=== PATIENT | male | born 1950 | race Caucasian/White ===

== ENCOUNTER → 2025-04-07 08:36 | Outpatient (REF) | payer MEDICARE, OTHER, SELFPAY ==
[2025-04-07 12:17] LABS: % Basophils 0.6 % (0-2); % Eosinophils 3.9 % (0-6); % Immature Granulocytes 0.1 % (0-0.5); % Lymphocytes 30.2 % (20.5-51.1); % Monocytes 11.1 % (1.7-9.3); % Neutrophils 54.1 % (42.2-75.2); Absolute Eosinophils 0.3 10^3/uL (0-0.7); Absolute Lymphocytes 2.2 10^3/uL (1.2-3.4); Absolute Monocytes 0.8 10^3/uL (0.1-0.6); Absolute Neutrophils 3.9 10^3/uL (1.4-6.5); Hematocrit 39.6 % (39.0-52.0); Hemoglobin 13.3 g/dL (13.0-18.0); Mean Corp Hgb Conc. 33.6 g/dL (33.0-37.0); Mean Corpuscular Hgb 31.4 pg (27.0-31.0); Mean Corpuscular Volume 93.6 fL (80.0-94.0); Mean Platelet Volume 9.9 fL (7.4-10.4); Nucleated Red Blood Cells % 0 % (-); Platelet Count 205 10^3/uL (130-400); Red Blood Cell Count 4.23 10^6/uL (4.70-6.10); Red Cell Dist. Width 13.9 % (11.5-14.5); White Blood Cell Count 7.1 10^3/uL (4.8-10.8)
[2025-04-07 12:26] LABS: Vitamin D, 25-OH*** 44.1 ng/mL (30-80)
[2025-04-07 12:33] LABS: ALT (SGPT) 26 U/L (0-50); AST (SGOT) 32 U/L (17-59); Albumin 4.2 g/dl (3.5-5.0); Alkaline Phosphatase 80 U/L (38-126); Blood Urea Nitrogen 26 mg/dl (9-20); Calcium 9.2 mg/dl (8.4-10.2); Glucose 118 mg/dl (70-99); HDL Cholesterol 34 mg/dl; LDL Cholesterol, Calculated 52 mg/dl; Total Bilirubin 0.6 mg/dl (0.2-1.3); Total Cholesterol 126 mg/dl (50-199); Total Protein 6.7 g/dl (6.3-8.2); Triglyceride 201 mg/dl (10-149); Very Low Density Lipoprotein 40 mg/dl (0-30); eGFR 48.85
[2025-04-07 12:39] LABS: PSA, Total - Screen 2.65 ng/ml (0.0-4.0)
[2025-04-07 12:44] LABS: Carbon Dioxide 20 mmol/L (22-30); Chloride 111 mmol/L (98-107); Potassium 4.6 mmol/L (3.5-5.1); Sodium 143 mmol/L (135-145)
[2025-04-07 12:59] LABS: Vitamin B12 377 pg/ml (239-931)
[2025-04-07 15:05] LABS: Glycohemoglobin (HgbA1c) 5.6 % (4.0-5.6)
[2025-04-07 16:46] LABS: Urine Albumin 3+ (Neg - Trace); Urine Bilirubin Negative (Negative); Urine Character Cloudy (Clear); Urine Color Yellow; Urine Glucose Negative (Negative); Urine Ketone Negative (Negative); Urine Leukocyte 3+ (Negative); Urine Nitrite Negative (Negative); Urine Occult Blood 3+ (Negative); Urine Specific Gravity 1.015 (<1.030); Urine Urobilinogen Negative (Neg - 1+)
[2025-04-07 16:55] LABS: Urine Squamous Cell 0-2 /LPF (Few)
[2025-04-07 16:56] LABS: Urine Bacteria Many (Negative); Urine White Cell 80-90 /HPF (0-5)
== END ==
LOC: HWLAB 08:36
PROVIDERS: ATTENDING PHYSICIAN Emergency Medicine
DX: Z00.00 Encounter for general adult medical examination without abnormal findings (principal); I10 Essential (primary) hypertension; N40.1 Benign prostatic hyperplasia with lower urinary tract symptoms; I25.10 Atherosclerotic heart disease of native coronary artery without angina pectoris; R73.03 Prediabetes; N18.31 Chronic kidney disease, stage 3a; E53.8 Deficiency of other specified B group vitamins; E55.9 Vitamin D deficiency, unspecified; Z12.5 Encounter for screening for malignant neoplasm of prostate
CPT/HCPCS: 36415; 80053; 80061; 81003; 81015; 82306; 82607; 83036; 85025; G0103

== ENCOUNTER → 2025-04-28 11:41 | Outpatient (REF) | payer MEDICARE, OTHER, SELFPAY ==
[2025-04-28 16:56] LABS: Urine Albumin 3+ (Neg - Trace); Urine Bilirubin Negative (Negative); Urine Character Cloudy (Clear); Urine Color Yellow; Urine Glucose Negative (Negative); Urine Ketone Negative (Negative); Urine Leukocyte 3+ (Negative); Urine Nitrite Negative (Negative); Urine Occult Blood 3+ (Negative); Urine Urobilinogen Negative (Neg - 1+)
[2025-04-28 17:05] LABS: Urine Squamous Cell 0-2 /LPF (Few)
[2025-04-28 17:06] LABS: Urine Bacteria Many (Negative); Urine Red Blood Cell 0-2 /HPF (0-2); Urine White Cell >100 /HPF (0-5)
== END ==
LOC: CLAB 11:41
PROVIDERS: ATTENDING PHYSICIAN Specialist
DX: N39.0 Urinary tract infection, site not specified (principal)
CPT/HCPCS: 81003; 81015; 87077; 87086; 87186

== ENCOUNTER → 2025-05-14 08:28 | Outpatient (REF) | payer MEDICARE, OTHER, SELFPAY ==
[2025-05-14 17:44] LABS: Urine Albumin 3+ (Neg - Trace); Urine Bilirubin Negative (Negative); Urine Character Cloudy (Clear); Urine Color Yellow; Urine Glucose Negative (Negative); Urine Ketone Negative (Negative); Urine Leukocyte 3+ (Negative); Urine Nitrite Negative (Negative); Urine Occult Blood 4+ (Negative); Urine Urobilinogen Negative (Neg - 1+)
[2025-05-14 18:07] LABS: Urine Bacteria Many (Negative); Urine Red Blood Cell 0-2 /HPF (0-2); Urine Squamous Cell 0-2 /LPF (Few); Urine White Cell 70-80 /HPF (0-5)
== END ==
LOC: CLAB 08:28
PROVIDERS: ATTENDING PHYSICIAN Specialist
DX: N39.0 Urinary tract infection, site not specified (principal)
CPT/HCPCS: 81003; 81015; 87077; 87086; 87186

== ENCOUNTER → 2025-06-03 10:48 | Outpatient (REF) | payer MEDICARE, OTHER, SELFPAY ==
[2025-06-03 11:36] LABS: Urine Character Cloudy (Clear)
[2025-06-03 11:51] LABS: Urine Red Blood Cell 26-30 /HPF (0-2); Urine Squamous Cell 0-2 /LPF (Few); Urine White Cell 70-80 /HPF (0-5)
== END ==
LOC: REG 10:48
PROVIDERS: ATTENDING PHYSICIAN Specialist; FAMILY PHYSICIAN Emergency Medicine
DX: R30.0 Dysuria (principal)
CPT/HCPCS: 81003; 81015; 87077; 87086; 87186

== ENCOUNTER 2025-09-03 12:49 | Inpatient (IN) | payer MEDICARE, OTHER, SELFPAY ==
[2025-09-03] VITALS (13 sets, daily range): BP systolic 122–150; BP diastolic 72–93; BMI 28.1; BMI 27.6
--- NOTE | 2025-09-03 08:30 | ED.GENMED ---
History of Present Illness
General
Chief Complaint: Abdominal Pain
Source: patient
Exam Limitations: none
Time Seen by Provider: 09/03/25 07:42
Nursing documentation reviewed up to this point in time: agreed with
History of Present Illness
History of Present Illness:
The patient is a 75-year-old man with a past medical history of Crohn disease and a colostomy who reports abdominal pain that started yesterday as well as decreased output from his colostomy bag. Patient reports he vomited 1 time this morning at 6
AM and now feels better but still has some discomfort. Patient describes it now as dull and constant. He denies fever. He reports that his Crohn's disease is generally well-controlled.
Past History
Past History
ED Past Medical History: HTN and Other (Crohn's disease)
ED Past Surgical History: Orthopedic and Other (Bowel resection and surgery)
Social History
Tobacco: Non-smoker
Alcohol: Other
Drug: None
Personal:
Living: with family
Employment: Other
Family History
Family History: Other
Review of Systems
Review of Systems
Allergies reviewed?: Yes
All Other Systems: ROS reviewed and negative except as documented in HPI and ROS
Constitutional: Reports no symptoms
EENT: Reports no symptoms
Respiratory: Reports no symptoms
Cardiac: Reports no symptoms
ABD/GI: Reports abdominal pain, nausea and vomiting
: Reports no symptoms
Musculoskeletal: Reports no symptoms
Skin: Reports no symptoms
Neurological: Reports no symptoms
Endocrine: Reports no symptoms
Hematologic/Lymphatic: Reports no symptoms
Psychiatric: Reports no symptoms
Phy Exam
Physical Exam
Physical Exam:
Physical Exam
General: no apparent distress, not acutely ill
Neck: supple. no meningeal signs. normal psoterior pharynx
Heart: s1/s2 regular rate and rhythm, no murmur. equal radial pulses.
Lungs: no acute respiratory distress. clear bilaterally
Abdomen: Mildly distended. Decreased bowel sounds. Small output of brown-green stool in colostomy bag. Mild mid abdominal tenderness without rebound or guarding.
Neuro: alert and oriented. no focal neurological deficits
Skin: no rash
Psychiatric: well kept. interactive and cooperative
Extremities: no edema. no calf tenderness. negative homans. good distal pulses
Course
Orders/Labs/Results
Orders:
Orders
09/03/25 08:03
CMP [Comprehensive Metabolic Panel] Urgent
Complete Blood Count/With Diff Urgent
09/03/25 08:52
CT Abd/pelvis W Iv Cont Urgent
Comment:
Reason For Exam: decreased output from colostomy bag, ab pain
09/03/25 08:53
Acetaminophen [Tylenol] 1,000 mg PO NOW STA
09/03/25 08:59
Ketorolac [Toradol] 15 mg IV NOW STA
Abnormal Lab Results
09/03/25
08:03
WBC 10.9 H 10^3/uL
(4.8-10.8)
MCH 31.7 H pg
(27.0-31.0)
Absolute Neuts (auto) 9.2 H 10^3/uL
(1.4-6.5)
Absolute Lymphs (auto) 1.1 L 10^3/uL
(1.2-3.4)
Neutrophils % 83.8 H %
(42.2-75.2)
Lymphocytes % 9.9 L %
(20.5-51.1)
Chloride 111 H mmol/L
(98-107)
Glucose 145 H mg/dl
(70-99)
Total Bilirubin 1.7 H mg/dl
(0.2-1.3)
09/03/25 08:03
09/03/25 08:03
Vital Signs
Initial and Last Documented VS:
Initial Vital Signs
Temp Pulse Resp BP Pulse Ox
98.3 F 78 16 150/93 97
09/03/25 06:58 09/03/25 06:58 09/03/25 06:58 09/03/25 06:58 09/03/25 06:58
Last Documented Vital Signs
Temp Pulse Resp BP Pulse Ox
98.3 F 78 16 136/87 93
09/03/25 06:58 09/03/25 06:58 09/03/25 06:58 09/03/25 09:31 09/03/25 10:00
MDM/Problems Addressed
Differential Diagnosis Includes:
Acute on chronic flare of Crohn's disease, acute partial bowel obstruction
MDM/Problems Addressed:
Patient presents with acute abdominal pain and vomiting
Chronic conditions affecting care:
Crohn's disease
Chronic conditions affecting care: Previous abdomnial surgery
Acute Exacerbation and/or Progression of Chronic Illness:
Patient may have acute flare of chronic Crohn's disease.
*Radiology
Radiology exam reviewed: radiology read reviewed
*Pulse Oximetry
SaO2: 92
Oxygen Mode of Delivery: Room air
Patient hypoxic: no
*Critical Care Note
Total Time (30-74mins, 75-104mins- exclusive of procedures): Not Applicable
Data Reviewed
Review of Other/Old Records Reveals: Discharge Summary (Discharge summary reviewed from hospitalist from November 2024 when patient was admitted for a likely viral gastroenteritis)
Source: patient and spouse
ED Attending Note
-
Portions of this chart may have been created with voice recognition software.� Occasional wrong word or��sound alike� substitutions may have occurred due to the inherent limitations of voice recognition software.
Discharge Plan
Departure
Patient Disposition: Admit
Date of Disposition: 09/03/25
Time of Disposition: 10:11
Admit to: Med/Surg
Presentation/result/management discussed w/ accepting MD/DO: Hospitalist
Patient with high blood pressure during this ER visit?: Yes
Condition: Good
Covid-19: Not Applicable
Discharge Problem:
Small bowel obstruction
Prescriptions:
No Action
metoprolol succinate [Toprol XL] 50 mg Tablet Extended Release 24 Hr
50 mg PO DAILY
Stelara 90 mg/mL Syringe
90 mg SC Q6W
mirabegron [Myrbetriq] 50 mg Tablet Extended Release 24 Hr
50 mg PO DAILY
loperamide 2 mg Tablet
2 mg PO BID
cyanocobalamin (vitamin B-12) 1,000 mcg Tablet
1,000 mcg PO DAILY
therapeutic multivitamin Tablet
1 tab PO DAILY
eplerenone 50 mg Tablet
50 mg PO QPM
tadalafil [Cialis] 5 mg Tablet
5 mg PO QPM
solifenacin [Vesicare] 10 mg Tablet
10 mg PO QPM
PreserVision AREDS 2,148 mcg-113 mg-45 mg-17.4mg Tablet
1 tab PO BID
omeprazole 40 mg Capsule,Delayed Release(Dr/Ec)
40 mg PO DAILY
cranberry 450 mg Tablet
450 mg PO DAILY
amlodipine 2.5 mg Tablet
2.5 mg PO DAILY Qty: 30 0RF
famotidine [Pepcid] 20 mg Tablet
20 mg PO DAILY Qty: 0 0RF
Referrals:
Queenie Cam MD [Family Provider, Internal Medicine]
Interventions
Interventions:
*Risk Screen - Suicide Last Done: 09/03/25 06:58
*General Assessment Last Done: 09/03/25 07:49
*Neglect/Abuse Screening Last Done: 09/03/25 06:58
*ED- Fall Risk Assessment Last Done: 09/03/25 07:49
*ED COVID-19 Vaccine History Last Done: 09/03/25 07:49
*ED Influenza Vaccine History Last Done: 09/03/25 07:49
MQ-Odnkia-Ugqtojwlzq Assessment Last Done: 09/03/25 07:49
Discharge Date and Time
Print Language: NAMIBIAN
[2025-09-03 08:39] LABS: Hematocrit 44.2 % (39.0-52.0); Hemoglobin 14.9 g/dL (13.0-18.0); Mean Corp Hgb Conc. 33.7 g/dL (33.0-37.0); Mean Corpuscular Volume 94.0 fL (80.0-94.0); Nucleated Red Blood Cells % 0 % (-); Platelet Count 224 10^3/uL (130-400); Red Cell Dist. Width 13.1 % (11.5-14.5)
[2025-09-03 08:54] LABS: ALT (SGPT) 22 U/L (0-50); AST (SGOT) 23 U/L (17-59); Albumin 4.4 g/dl (3.5-5.0); Alkaline Phosphatase 69 U/L (38-126); Blood Urea Nitrogen 17 mg/dl (9-20); Calcium 9.5 mg/dl (8.4-10.2); Carbon Dioxide 25 mmol/L (22-30); Chloride 111 mmol/L (98-107); Estimated Creatinine Clearance 61 ml/min; Glucose 145 mg/dl (70-99); Potassium 4.0 mmol/L (3.5-5.1); Sodium 144 mmol/L (135-145); Total Protein 7.1 g/dl (6.3-8.2); eGFR > 60.00
[2025-09-03] MEDS: TORADOL 15 MG IV (09:32)
--- NOTE | 2025-09-03 11:44 | HPS.HSE ---
Addendum entered and electronically signed by Andi Green MD 09/03/25 13:59:
I personally performed a history and physical exam of the patient and discussed management with the resident. I reviewed the resident's note and agree with the documented findings and plan of care HPI/CC.
75-year-old male with history of Crohn's disease with takedown of fistula and colostomy, hypertension, CKD, BPH, CHAD on CPAP, pancreatic cyst, self caths at home came to the hospital with nausea vomiting abdominal pain. CT scan consistent with
distal SBO. Consult surgery. Surgery also requested GI evaluation. GI consulted. Administer NG tube if persistent nausea and vomiting. NPO. Gentle hydration. pain control. No urgency which he gets when he gets UTI. can monitor for now. Sees
urology outpatient. Discussed with Spouse at bedside as well.
General: Comfortable and Conversant
HEENT: Moist mucous membranes and Atraumatic
Respiratory: Clear; No Wheezes, Rales, Rhonchi
Cardiac: S1/S2 and Regular Rhythm
GI: Soft, Non Tender, Non Distended, Normal Bowel Sounds and Other (Ostomy clean, dressing intact)
Genito-urinary: Deferred by me
Musculoskeletal: No Edema
Neuro: AO x 3 and No Motor Deficits
Psych: Calm
I spent a total of 77 minutes with the patient or on the floor. More than 50% of this time involved counseling and coordination of care.
Original Note:
Family Physician
-
Family Physician: Queenie Cam MD
Chief Complaint
-
Abdominal pain
History of Present Illness
75-year-old male with past medical history significant for hypertension, Crohn's disease with takedown of fistula and colostomy, CKD stage IIIa, BPH, CHAD on CPAP, pancreatic cyst, presents to the hospital for evaluation of acute onset abdominal
pain. His abdominal pain started yesterday after 11 AM. And he started noticing decreased output from his colostomy bag. His most recent normal colostomy output was on 09/01 at 4 PM. patient reports single episode of nausea and emesis in the a.m.
today, and continues to have nausea. He states that he currently has abdominal discomfort, dull and constant which resolved upon coming to the ER and receiving pain medication. He denied having any tarry colored bowel movements or fresh blood in
the bowel.
He reports history of BPH with urinary retention and LUTS, and he straight caths 3 times a day, his urine output is typically about 800 to 1000 mL, over the last 2 days his urine output decreased.
He denies having fevers, chills, dysuria, hesitancy, dark urine, hematuria, chest pain, shortness of breath, and orthopnea or PND. He had no syncopal events.
Medical History
Past Medical History
Past Medical History: Reports Other (hypertension, Crohn's disease with takedown of fistula and colostomy, CKD stage IIIa, BPH, CHAD on CPAP, pancreatic cyst)
Past Surgical History: Reports Other (Total Colectomy, Multiple Ostomy Revisions, T&A, MOHS surgeries, Left TKA)
Social History
Tobacco: Former Smoker ([id number] smoking history, quit 12 years ago.)
Alcohol: Occasional
Drug: None
Personal:
Living: With Family
Employment: Retired
Family History
Family History: Not pertinent
Allergies / Home Medications
Allergies reflects when Allergies were last updated in [facility].
Home Medications with original date entered in [facility]
Allergy/Medication List:
Allergies
Allergy/AdvReac Type Severity Reaction Status Date / Time
mesalamine (From Pentasa) Allergy Rash Unverified 03/26/25 15:09
olmesartan (From Benicar) Allergy Rash Unverified 03/26/25 15:09
Penicillins Allergy Rash Unverified 03/26/25 15:09
Sulfa (Sulfonamide Allergy Rash Unverified 03/26/25 15:09
Antibiotics)
Home Medications
loperamide 2 mg tablet 2 mg PO BID diarrhea 12/25/23
metoprolol succinate 50 mg tablet,extended release 24 hr (Toprol XL) 50 mg PO HS Heart Disease/Condition 12/25/23
tadalafil 5 mg tablet (Cialis) 5 mg PO QPM bph 12/25/23
therapeutic multivitamin 1 tab PO HS Supplement 12/25/23
vitamins A,C,D-jhbq-nlhdps 2,148 mcg-113 mg-45 mg-17.4 mg tablet (PreserVision AREDS) 1 tab PO BID Supplement 12/25/23
cranberry fruit 450 mg tablet (cranberry) 450 mg PO HS Supplement 12/01/24
alfuzosin 10 mg tablet,extended release 24 hr 10 mg PO HS BPH 09/03/25
amlodipine 5 mg tablet 5 mg PO HS Blood Pressure 09/03/25
cyanocobalamin (vitamin B-12) 1,000 mcg/mL injection solution 1,000 mcg IM MONTHLY vitamin supplemen 09/03/25
doxycycline hyclate 100 mg capsule 100 mg PO BID acute cough 09/03/25
famotidine 20 mg tablet (Pepcid) 20 mg PO BID Gastrointestinal Issue 09/03/25
finasteride 5 mg tablet 5 mg PO HS bph 09/03/25
methenamine hippurate 1 gram tablet 1,000 g PO BID UTI prophylaxis 09/03/25
omeprazole 20 mg capsule,delayed release 20 mg PO DAILY Gastrointestinal Issue 09/03/25
risankizumab-rzaa 60 mg/mL intravenous solution (Skyrizi) 600 mg IV . DIRECTED Gastrointestinal Issue 09/03/25
Review of Systems
-
History Source: Patient
A 12 point ROS was completed and negative except as noted: No
Constitutional: Reports No Symptoms
EENT: Reports No Symptoms
Respiratory: Reports No Symptoms
Cardiac: Reports No Symptoms
Abdomen/GI: Reports Abdominal Pain, Nausea, Vomiting and Other (poor ostomy output)
: Reports No Symptoms
Musculoskeletal: Reports No Symptoms
Skin: Reports No Symptoms
Neurological: Reports No Symptoms
Psych: Reports No Symptoms
Physical Exam
Vital Signs
Vital Signs
Temp Pulse Resp BP Pulse Ox
98.3 F 67 16 131/84 94
09/03/25 06:58 09/03/25 10:56 09/03/25 10:56 09/03/25 11:00 09/03/25 11:00
Physical Exam
General: Comfortable and Conversant
HEENT: Moist mucous membranes and Atraumatic
Respiratory: Clear; No Wheezes, Rales, Rhonchi or Crackles
Cardiac: S1/S2 and Regular Rhythm; No Murmur, Rub or Gallop
GI: Soft, Non Tender, Non Distended, Normal Bowel Sounds and Other (Ostomy clean, dressing intact, no erythema edema or local rise of temperature, greenish secretions noted in the ostomy output.)
Genito-urinary: Deferred by me
Musculoskeletal: No Clubbing, No Cyanosis and No Edema
Skin: Warm
Neuro: AO x 3 and No Motor Deficits
Psych: Calm
Laboratory Results
-
09/03/25 08:03
09/03/25 08:03
Laboratory Results
Total Bilirubin 1.7 mg/dl (0.2-1.3) H 09/03/25 08:03
AST 23 U/L (17-59) 09/03/25 08:03
ALT 22 U/L (0-50) 09/03/25 08:03
Alkaline Phosphatase 69 U/L (38-126) 09/03/25 08:03
Data Reviewed
-
CT Scan: Image Personally Visualized and interpreted, Report Reviewed by me, Discussed with Physician, Discussed with Patient and Discussed with Family
Lab Data: Labs Reviewed by me, Discussed with Physician, Discussed with Patient and Discussed with Family
Impression/Plan
-
IMPRESSION: 75-year-old male with PMHx significant for hypertension, Crohn's disease with takedown of fistula and recurrent revision ostomies, stage IIIa CKD, BPH, CHAD on CPAP, pancreatic cyst presents to the hospital for evaluation of acute
abdominal pain. He is diagnosed to have small bowel obstruction.
PLAN:
# Acute small bowel obstruction-
Presentation, physical exam and imaging findings consistent.
General surgery consulted, patient made NPO.
Admit patient to MedSurg, IV fluids @80
Continue pantoprazole and Vicki.
Appreciate surgery input.
Monitor I's and O's.
# Crohn's disease, on Skyrizi-
Missed Skyrizi infusion today.
Consulted GI per surgery.
Appreciate GI input.
# BPH with LUTS-
History of chronic urinary retention.
Patient's straight caths x 3 a day.
Start the patient on bladder scan protocol,
BPH medications-alfuzosin, finasteride, tadalafil on hold.
CT abdomen and pelvis today showed some evidence for incomplete bilateral ureteropelvic junction obstruction.
Monitor I's and O's
# CKD stage IIIa-
Stable.
# Essential hypertension-
On amlodipine and metoprolol at home.
Oral meds held, patient NPO.
Add Lopressor as needed.
# CHAD-
Continue home CPAP.
# DVT prophylaxis-
Sequential compression devices
CODE STATUS
Full code.
--- NOTE | 2025-09-03 14:01 | CON.GS ---
Addendum entered and electronically signed by Fly Scott MD 09/04/25 10:36:
09/03/25 - Dr Contreras at [facility] office contacted by phone. Message left.
Addendum entered and electronically signed by Fly Scott MD 09/03/25 14:48:
He is followed by GI at [facility] and asked that we keep that physician apprised of his condition.
Addendum entered and electronically signed by Fly Scott MD 09/03/25 14:47:
I was physically present and personally performed the bernal portions of the surgical evaluation and/or procedure with the resident. I discussed the findings, reviewed the resident�s note, and confirmed the medical decision-making. I provided direct
supervision as required and agree with the assessment and plan as documented with the following additions/corrections:
Pt reports acute onset lower abd pain a/w nausea that progressed to vomiting that began yesterday. Presently the pain is relieved by toradol. he is not currently nauseated. He also reports decreased stoma output. He self-caths for chronic urinary
retention. He reports eating caramel corn during the ballgame prior to onset, which he normally avoids. He is soft and on tender on exam. His stoma appliance has stool and gas in it. He reports hx of TAC in 1982 for crohn's. He has had revisional
surgery since then, unsure of the time frame, for residual disease. He is on biologics now and has been stable from a Crohn's standpoint. CT with dilated small bowel and distally decompressed small bowel as it approaches the stoma. Sb feces sign
noted. Plan for trial of nonop mgmt with NPO/IVF, serial abdominal exams. If no improvement within next 24 hrs would proceed with PO conrtast imaging. Rec GI consult given Crohn's on active biologic mgmt.
Original Note:
Medical History
-
Chief Complaint: Abdominal pain
History of Present Illness:
75-year-old male with past medical history of Crohn�s disease status post multiple fistulectomies leading to total colectomy with ileostomy with prior stoma site relocation, hypertension, BPH, CHAD on CPAP, esophagitis, pancreatic cyst, and CKD, as
well as other surgical history significant for right inguinal hernia repair (Nov 2024), multiple fistulectomies, tonsillectomy, Mohs surgery, and left knee replacement, presents with 1 day history of abdominal pain. Pain is described as feeling like
�eating glass,� constant, moderate in intensity, dull, and pressure-like in quality, localized to the lower abdomen. He took Tylenol without relief. Symptoms were associated with dry heaves and vomiting of liquid and partially digested food. He also
reports decreased ileostomy output, noting that he typically empties the bag 7�8 times daily. Reports recently eating caramel popcorn prior to symptom onset. He denies fever, chills, or dysuria.
Currently, the abdominal pain has improved after receiving pain medication. He also notes a history of urinary incontinence requiring self-catheterization and recurrent UTIs.
CT shows: Dilated small bowel with air-fluid levels up to 4.4 cm extending into the right lower quadrant of the abdomen/right true pelvis up to the approaching the level of the right inguinal canal suspicious for DISTAL SMALL BOWEL OBSTRUCTION,
possibly on the basis of adhesions. No free air.
Small bilateral simple renal cysts as well as additional subcentimeter low-attenuation renal lesions too small to characterize.
Bilateral extrarenal pelves containing contrast/urine levels bilaterally (without significant collecting system dilatation), without excreted contrast seen in nondilated ureters bilaterally and no contrast seen within predominantly empty urinary
bladder. Cannot exclude incomplete bilateral UPJ obstruction.
At least moderately enlarged prostate gland.
Cholelithiasis.
WBC 10.9, Total Bilirubin 1.7, ALT, ALP, AST wnl, urinalysis suggestive of possible ongoing UTI
Past Medical History
Past Medical History: HTN, Renal Failure and Other (Crohn's Disease, Pancreatic Cyst, CHAD, BPH, Urinary Retention, Osteoarthritis, esophagitis, prominent periportal lymph node under surveillance, Thoracic Aortic Aneurysm )
Past Surgical History: Tonsilectomy and Other (Fistulectomies, total colectomy and ileostomy, stoma site relocation, MOHs Surgery for basal cell carcinoma, Left Total Knee Replacement, Right Inguinal Hernia repair)
Social History
Tobacco: Former Smoker
Alcohol: Occasional
Drug: None
Personal:
Living: With Family
Employment: Retired
Family History
Family History: Reviewed & Not Pertinent
Allergies / Home Medications
Allergy/AdvReac Type Severity Reaction Status Date / Time
mesalamine (From Pentasa) Allergy Rash Unverified 03/26/25 15:09
olmesartan (From Benicar) Allergy Rash Unverified 03/26/25 15:09
Penicillins Allergy Rash Unverified 03/26/25 15:09
Sulfa (Sulfonamide Allergy Rash Unverified 03/26/25 15:09
Antibiotics)
�Medication �Instructions �Recorded �Confirmed �Type
loperamide 2 mg tablet 2 mg PO BID diarrhea 12/25/23 09/03/25 History
metoprolol succinate 50 mg 50 mg PO HS Heart Disease/Condition 12/25/23 09/03/25 History
tablet,extended release 24 hr
(Toprol XL)
tadalafil 5 mg tablet (Cialis) 5 mg PO QPM bph 12/25/23 09/03/25 History
therapeutic multivitamin 1 tab PO HS Supplement 12/25/23 09/03/25 History
vitamins A,C,R-qtmn-cknxwm 2,148 1 tab PO BID Supplement 12/25/23 09/03/25 History
mcg-113 mg-45 mg-17.4 mg tablet
(PreserVision AREDS)
cranberry fruit 450 mg tablet 450 mg PO HS Supplement 12/01/24 09/03/25 History
(cranberry)
alfuzosin 10 mg tablet,extended 10 mg PO HS BPH 09/03/25 09/03/25 History
release 24 hr
amlodipine 5 mg tablet 5 mg PO HS Blood Pressure 09/03/25 09/03/25 History
cyanocobalamin (vitamin B-12) 1,000 mcg IM MONTHLY vitamin 09/03/25 09/03/25 History
1,000 mcg/mL injection solution supplemen
doxycycline hyclate 100 mg capsule 100 mg PO BID acute cough 09/03/25 09/03/25 History
famotidine 20 mg tablet (Pepcid) 20 mg PO BID Gastrointestinal Issue 09/03/25 09/03/25 History
finasteride 5 mg tablet 5 mg PO HS bph 09/03/25 09/03/25 History
methenamine hippurate 1 gram tablet 1,000 g PO BID UTI prophylaxis 09/03/25 09/03/25 History
omeprazole 20 mg capsule,delayed 20 mg PO DAILY Gastrointestinal 09/03/25 09/03/25 History
release Issue
risankizumab-rzaa 60 mg/mL 600 mg IV . DIRECTED 09/03/25 09/03/25 History
intravenous solution (Skyrizi) Gastrointestinal Issue
Review of Systems
-
All other systems: Negative unless noted
A 10 point review of systems was completed, and was negative except as per HPI.
Physical Exam
Vital Signs
Temp Pulse Resp BP Pulse Ox
98.3 F 66 16 134/89 94
09/03/25 06:58 09/03/25 12:20 09/03/25 12:20 09/03/25 12:00 09/03/25 12:00
09/02/25 09/03/25 09/04/25
06:59 06:59 06:59
Actual Weight 88.8 kg
Body Mass Index (BMI) 28.1
Lab Results
09/03/25 08:03
09/03/25 08:03
WBC 10.9 10^3/uL (4.8-10.8) H 09/03/25 08:03
Hgb 14.9 g/dL (13.0-18.0) 09/03/25 08:03
Hct 44.2 % (39.0-52.0) 09/03/25 08:03
Plt Count 224 10^3/uL (130-400) 09/03/25 08:03
Abs Immat Gran (auto) 0.0 10^3/uL (0-0.05) 09/03/25 08:03
Neutrophils % 83.8 % (42.2-75.2) H 09/03/25 08:03
Physical Exam
General: No Apparent Distress
Respiratory: Non Labored Respirations
GI: Soft, Non Distended, Tender (Mildly tender in periumbilical area) and Other ((+) ileostomy in right lower quadrant with pink, moist, protruding stoma. Appliance in place with greenish-brown, applesauce consistency. Surrounding skin clean, dry,
and intact. (+) midline and left mid-abdominal incisional scar from prior surgery )
Genito-urinary: Other ((+) incisional scar from right inguinal repair)
Skin: Warm
Neuro: AO x 3
Psych: Calm
Data Reviewed
-
CT Scan: Image Personally Visualized and interpreted (by attending surgeon), Report Reviewed by me (and by attending surgeon), Discussed with Patient (by attending surgeon) and Discussed with Family (by attending surgeon)
Assessment / Plan
-
75-year-old male with past medical history of Crohn�s disease status post multiple fistulectomies leading to total colectomy with ileostomy and prior stoma site relocation, urinary retention on self-catheterization, presents with 1 day history of
lower abdominal pain, associated with dry heaves, vomiting of liquid and partially digested food, and decreased ileostomy output. Denies fever, chills, or dysuria.
CT shows: Dilated small bowel with air-fluid levels up to 4.4 cm extending into the right lower quadrant of the abdomen/right true pelvis up to the approaching the level of the right inguinal canal suspicious for DISTAL SMALL BOWEL OBSTRUCTION,
possibly on the basis of adhesions. No free air.
Small bilateral simple renal cysts as well as additional subcentimeter low-attenuation renal lesions too small to characterize.
Bilateral extrarenal pelves containing contrast/urine levels bilaterally (without significant collecting system dilatation), without excreted contrast seen in nondilated ureters bilaterally and no contrast seen within predominantly empty urinary
bladder. Cannot exclude incomplete bilateral UPJ obstruction.
At least moderately enlarged prostate gland.
Cholelithiasis.
WBC 10.9, Total Bilirubin 1.7, ALT, ALP, AST wnl, urinalysis suggestive of possible ongoing UTI
#Partial Small Bowel Obstruction secondary to abdominal Adhesions vs UTI
-noted improvement in pain with pain reliever
-NPO and bowel rest
-Urine Culture
-Pain management and antiemetics
-Appreciate GI team coordinating with Dr. Contreras, the patient's system designer.
-If pain and symptoms does not improve within 24 hours, suggest imaging studies with oral contrast
--- NOTE | 2025-09-03 15:08 | CON.GI ---
Addendum entered and electronically signed by Garo Carvajal MD 09/03/25 19:00:
I saw and examined the patient.
The BUS AIDE or PA's note was reviewed and I agree with the note.
Comment:
Pt know at [facility] with long standing SB crohns since 1982 who has had several surgeries and has ostomy with nausea, vomiting and abd distention with decreased ostomy output, on skyrizi, does not feel it is a flare and slowly improving
abd: soft, mild distention, ostomy in place
impression
crohns
psbo likely due to adhesion
nause
plan:
check sed rate, crp
NGT if vomits
IV fluids
PPI and antiemetics
surgery following
f/u Dr. Contreras
Original Note:
Consultation
-
Date/Time Consultation Requested: 09/03/25 1300
Date/Time Consultation Performed: 09/03/25 1500
Requesting Provider: Jenny Prieto MD
Performing Provider: MIRYAM Morocho, Garo Carvajal MD
Reason for Consultation: small bowel obstruction
Medical History
Chief Complaint / HPI
Chief Complaint: bloating, decreased output
History of Present Illness:
Pt is a 75yo presents with history of crohns diseases, BPH, sleep apnea, esophagitis , pancreatic cyst, prominent periportal lymph nodes, B12 deficiency, gastritis, shingles, thoracic aneurysmal dilation, PNA, prior covid ,basal cell Ca, CKD and
recent inguinal hernia with urinary issues and chronic st cath and longstanding crohn's disease since 1972 initially UC then later crohns. He had total colectomy at [facility] with ileostomy then stoma revision with ulceration in 1985. In 2005 he
had surgical procedure with Dr. Whitfield with hernia repair, SB resection and revision on ileostomy. He has been treated with multiple medications through then years with sulfasalazine, 6 MP, Remicade with and development of lupus. He was on
Stelara until November but had covid, hernia repair with urinary issues and was off medication for about 6 months. On resuming medication in April he started Skyrizi with recent third dose. He now presents with mild abdominal pain, bloating,
vomiting larger volume on 09/03 prior to admission, decreased ostomy output since 09/02. Ct on admission with concern for dilated SB with air fluid level in RLQ at level of right inguinal canal concern for distal SBO on basis on adhesions. no free
air.
In review with patient he has not had need for steroid for crohns, hospitalization and has been well controlled. He denies wt loss, dysphagia, GERD, constipation or bleeding. Pt denies visual problems, rashes or joint pains with IBD. Last
visit Dr. Contreras at [facility] 03/2025 due follow up MRI and MR enterography due to be done today.
Past Medical History
Past Medical History: Cancer (mohs surgery for basal cell cheek ), HTN, Renal Failure (CKD) and Other (crohn's disease with fistulizing disease, BPH, sleep apnea, esophagitis , pancreatic cyst, prominent periportal lymph nodes, B12 deficiency,
gastritis, shingles, thoracic aneurysmal dilation, PNA, inguinal hernia )
Past Surgical History: Orthopedic (TKR), Tonsilectomy and Other (, prior fis total colectomy at [facility] with ileostomy then stoma revision with ulceration in 1985, 2005 he had surgical procedure with Dr. Whitfield with hernia repair, SB resection and
revision on ileostomy, 2024 inguinal hernia repair )
Social History
Tobacco: Former Smoker (quit 17 years ago)
Alcohol: Occasional
Drug: None
Personal:
Living: With Family
Employment: Retired
Family History
Family History: Other (no family hx crohns or UC )
Allergies / Home Medications
Allergy/AdvReac Type Severity Reaction Status Date / Time
mesalamine (From Pentasa) Allergy Rash Unverified 03/26/25 15:09
olmesartan (From Benicar) Allergy Rash Unverified 03/26/25 15:09
Penicillins Allergy Rash Unverified 03/26/25 15:09
Sulfa (Sulfonamide Allergy Rash Unverified 03/26/25 15:09
Antibiotics)
�Medication �Instructions �Recorded
loperamide 2 mg tablet 2 mg PO BID diarrhea 12/25/23
metoprolol succinate 50 mg 50 mg PO HS Heart Disease/Condition 12/25/23
tablet,extended release 24 hr
(Toprol XL)
tadalafil 5 mg tablet (Cialis) 5 mg PO QPM bph 12/25/23
therapeutic multivitamin 1 tab PO HS Supplement 12/25/23
vitamins A,C,J-cmxt-vwaiov 2,148 1 tab PO BID Supplement 12/25/23
mcg-113 mg-45 mg-17.4 mg tablet
(PreserVision AREDS)
cranberry fruit 450 mg tablet 450 mg PO HS Supplement 12/01/24
(cranberry)
alfuzosin 10 mg tablet,extended 10 mg PO HS BPH 09/03/25
release 24 hr
amlodipine 5 mg tablet 5 mg PO HS Blood Pressure 09/03/25
cyanocobalamin (vitamin B-12) 1,000 mcg IM MONTHLY vitamin 09/03/25
1,000 mcg/mL injection solution supplemen
doxycycline hyclate 100 mg capsule 100 mg PO BID acute cough 09/03/25
famotidine 20 mg tablet (Pepcid) 20 mg PO BID Gastrointestinal Issue 09/03/25
finasteride 5 mg tablet 5 mg PO HS bph 09/03/25
methenamine hippurate 1 gram tablet 1,000 g PO BID UTI prophylaxis 09/03/25
omeprazole 20 mg capsule,delayed 20 mg PO DAILY Gastrointestinal 09/03/25
release Issue
risankizumab-rzaa 60 mg/mL 600 mg IV . DIRECTED 09/03/25
intravenous solution (Skyrizi) Gastrointestinal Issue
Review of Systems
-
History Source: Patient and Family
Constitutional: Reports No Symptoms
EENT: Reports No Symptoms
Respiratory: Reports No Symptoms
Cardiac: Reports No Symptoms
Abdomen/GI: Reports Abdominal Pain, Nausea, Vomiting and Other (decreased ostomy output, bloating )
: Reports Other (st cath several times per day )
Musculoskeletal: Reports No Symptoms
Skin: Reports No Symptoms
Neurological: Reports No Symptoms
Endocrine: Reports No Symptoms
Hematologic/Lymphatic: Reports No Symptoms
Vital Signs
Temp Pulse Resp BP Pulse Ox
98.3 F 66 16 134/89 94
09/03/25 06:58 09/03/25 12:20 09/03/25 12:20 09/03/25 12:00 09/03/25 12:00
Physical Exam
Exam
General: Well Developed, Well Nourished and No Apparent Distress
HEENT: Normocephalic and Anicteric
Respiratory: Clear
Cardiac: Regular Rhythm
GI: Soft, Tender (minimal ), Distended and Other (multiple abdominal scars, ostomy now with some liquid brown stool)
Musculoskeletal: No Clubbing and No Cyanosis
Skin: Warm and Dry
Neuro: Awake, Alert and AO x 3
Psych: Calm
Results
WBC 10.9 10^3/uL (4.8-10.8) H 09/03/25 08:03
Hgb 14.9 g/dL (13.0-18.0) 09/03/25 08:03
Hct 44.2 % (39.0-52.0) 09/03/25 08:03
MCV 94.0 fL (80.0-94.0) 09/03/25 08:03
Plt Count 224 10^3/uL (130-400) 09/03/25 08:03
Absolute Neuts (auto) 9.2 10^3/uL (1.4-6.5) H 09/03/25 08:03
Sodium 144 mmol/L (135-145) 09/03/25 08:03
Potassium 4.0 mmol/L (3.5-5.1) 09/03/25 08:03
Chloride 111 mmol/L (98-107) H 09/03/25 08:03
Carbon Dioxide 25 mmol/L (22-30) 09/03/25 08:03
BUN 17 mg/dl (9-20) 09/03/25 08:03
Creatinine 1.1 mg/dL (0.7-1.3) 09/03/25 08:
Calcium 9.5 mg/dl (8.4-10.2) 09/03/25 08:03
Total Bilirubin 1.7 mg/dl (0.2-1.3) H 09/03/25 08:03
AST 23 U/L (17-59) 09/03/25 08:03
ALT 22 U/L (0-50) 09/03/25 08:03
Alkaline Phosphatase 69 U/L (38-126) 09/03/25 08:03
Diagnostic Image Results:
05/2025 �MRI - MRCP follow up panc cyst
Multiple pancreatic cystic lesions, in keeping with indolent lesions of epithelial origin. No development of high risk stigmata or worrisome features.
�
Slowly growing lesion showing mild restricted diffusion within segment 4 of the liver present on prior MR examinations dating back to 2018. The lesion is isointense to surrounding liver on T1 weighted images suggesting it is hepatocellular in
origin. 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 At the time of next follow-up MRI one should consider obtaining the examination with Eovist gadolinium contrast
09/03/25 CT A/p
Right lower quadrant ostomy, presumably a colostomy.
Dilated small bowel with air-fluid levels up to 4.4 cm extending into the right lower quadrant of the abdomen/right true pelvis up to the approaching the level of the right inguinal canal suspicious for DISTAL SMALL BOWEL OBSTRUCTION, possibly on
the basis of adhesions. No free air.
Small bilateral simple renal cysts as well as additional subcentimeter low-attenuation renal lesions too small to characterize.
Bilateral extrarenal pelves containing contrast/urine levels bilaterally (without significant collecting system dilatation), without excreted contrast seen in nondilated ureters bilaterally and no contrast seen within predominantly empty urinary
bladder. Cannot exclude incomplete bilateral UPJ obstruction.
At least moderately enlarged prostate gland.
Cholelithiasis.
Prior GI Procedures:
12/2021- ileoscopy pseudopolyps in area at 5 cm proxim to stoma
prior EUS/EGD 2018
Assessment / Plan
-
Pt is a 75yo presents with history of crohns diseases, BPH, sleep apnea, esophagitis , pancreatic cyst, prominent periportal lymph nodes, B12 deficiency, gastritis, shingles, thoracic aneurysmal dilation, PNA, prior covid ,basal cell Ca, CKD and
recent inguinal hernia with urinary issues and chronic st cath and longstanding crohn's disease since 1972 initially UC then later crohns. He had total colectomy at [facility] with ileostomy then stoma revision with ulceration in 1985. In 2005 he
had surgical procedure with Dr. Whitfield with hernia repair, SB resection and revision on ileostomy. He has been treated with multiple medications through then years with sulfasalazine, 6 MP, Remicade with and development of lupus. He was on
Stelara until November but had covid, hernia repair with urinary issues and was off medication for about 6 months. On resuming medication in April he started Skyrizi with recent third dose. He now presents with mild abdominal pain, bloating,
vomiting larger volume on 09/03 prior to admission, decreased ostomy output since 09/02. Ct on admission with concern for dilated SB with air fluid level in RLQ at level of right inguinal canal concern for distal SBO on basis on adhesions. no free
air. In review with patient he has not had need for steroid for crohns, hospitalization and has been well controlled. He denies wt loss, dysphagia, GERD, constipation or bleeding. Pt denies visual problems, rashes or joint pains with IBD. Last
visit Dr. Contreras at [facility] 03/2025 due follow up MRI and MR enterography due to be done today. 12/2021- ileoscopy pseudopolyps in area at 5 cm proximal to stoma
-concern for distal SB obstruction-
-hx long standing crohns with multiple surgical intervention and medication as above current Skyrizi started on April off medication November
-hx multiple panc cyst with follow at [facility]
-leukocytosis
-recent inguinal hernia repair 2024
other med problems:
BPH, sleep apnea, esophagitis , pancreatic cyst, prominent periportal lymph nodes, B12 deficiency, gastritis, shingles, thoracic aneurysmal dilation, PNA, prior covid ,basal cell Ca, CKD and recent inguinal hernia with urinary issues and chronic
st cath
PLAN:
etiology of symptoms with concern for obstructive process but now resolving in ER with stool in ostomy bag
obstruction may be on basis on adhesion, inflammation vs other
cont NPO, IVF- advance diet as tolerating if obstruciton resolving
s/p surgical eval
pain control
will review with Dr. Carvajal for steroids but may be able to hold for now as improving without starting
monitor for recurrent vomiting or pain
pt was due for MRE today outpatient will eventual need to reschedule
follow up with Dr. Neal and continue OP Skyrizi -- missed infusion today
-
-
Thank you for consultation and allowing me to participate in the patient's care. Please call the chain maker loom control GI physician during the after hours with any questions or concerns.
[2025-09-03] MEDS: LR 1000 IV (16:56)
--- NOTE | 2025-09-03 17:37 | EDCM ---
CM reviewed the chart and met with pt and his at ED bedside.
He lives in a split level home 4 [address] and 4 steps to bathroom.
Prior to admission he was able to do all his ADLs independently.
Lives with his at home.
He has an ileostomy and all the ostomy supplies at home. He does not remember the name of DME vendor but has information at home. He was ambulating without any assistive device at home and was managing his ostomy .
No hx of VN or SNF/rehab.
Confirmed his PCP info and pharmacy info.
PCP:Queenie Cam
Pharmacy: [facility]
CM will continue to follow for discharge planning needs.
Anticipated discharge location is to return back to home.
[2025-09-03] MEDS: TORADOL 10 MG IV (19:19)
--- NOTE | 2025-09-03 20:35 | PTCARENOTE ---
[facility] @ [facility] and ambulated to bed w/o issue. AAOx3, VSS. Pt brought supplies for ileostomy care. Pt also straight cath's 3x/day and brought his own supplies. NPO. IVF initiated per order. Admission assessment completed. Surgery and GI
consult ordered. Pt oriented to room, call chavez within reach, bed locked and in lowest position. Reviewed plan of care with pt and answered all questions. Care ongoing.
--- NOTE | 2025-09-03 21:15 | PTCARENOTE ---
Blood sugar of 188 recorded at 2116 is incorrect for this pt. Wrong account number entered into accu-check machine. Care ongoing.
[2025-09-03 21:17] LABS: Glucose - Point of Care 188 mg/dl (70-99)
[2025-09-04] MEDS: LR 1000 IV ×2 (04:30→17:01)
[2025-09-04] MEDS: ZOFRAN 4 MG IV (07:01)
[2025-09-04] MEDS: PROTONIX IV 40 MG IV (07:01)
[2025-09-04 07:02] LABS: C-Reactive Protein 19.60 mg/L (0.0-10.00)
[2025-09-04 07:35] VITALS: BP 122/77
[2025-09-04 08:27] LABS: Hematocrit 44.3 % (39.0-52.0); Hemoglobin 14.4 g/dL (13.0-18.0); Mean Corp Hgb Conc. 32.5 g/dL (33.0-37.0); Mean Corpuscular Volume 94.9 fL (80.0-94.0); Nucleated Red Blood Cells % 0 % (-); Platelet Count 207 10^3/uL (130-400); Red Cell Dist. Width 13.5 % (11.5-14.5)
[2025-09-04 09:39] LABS: ALT (SGPT) 25 U/L (0-50); AST (SGOT) 30 U/L (17-59); Albumin 4.2 g/dl (3.5-5.0); Alkaline Phosphatase 65 U/L (38-126); Blood Urea Nitrogen 28 mg/dl (9-20); Calcium 9.7 mg/dl (8.4-10.2); Carbon Dioxide 27 mmol/L (22-30); Chloride 108 mmol/L (98-107); Estimated Creatinine Clearance 56 ml/min; Glucose 127 mg/dl (70-99); Potassium 3.7 mmol/L (3.5-5.1); Sodium 143 mmol/L (135-145); Total Protein 6.7 g/dl (6.3-8.2); eGFR > 60.00
[2025-09-04 09:46] VITALS: BP 127/79; PULSE 79; O2SAT 92
--- NOTE | 2025-09-04 10:03 | W.PN.HOSP.TC ---
Today's Communication/Plan
-
Monitor vital signs see plan
Continue with n.p.o.
May need NG tube if persistently nauseous and vomiting, surgery to see today
Gentle hydration
zofran
Assessment / Plan
Assessment / Plan
General: Comfortable and Conversant
HEENT: Moist mucous membranes and Atraumatic
Respiratory: Clear; No Wheezes, Rales, Rhonchi
Cardiac: S1/S2 and Regular Rhythm
GI: Soft, Non Tender, Non Distended, Normal Bowel Sounds and Other (Ostomy clean, dressing intact)
Genito-urinary: Deferred by me
Musculoskeletal: No Edema
Neuro: AO x 3 and No Motor Deficits
Psych: Calm
Acute small bowel obstruction-
CT noted; was done without PO contrast in ED
General surgery following, continue with n.p.o. for now
If persistently nauseous and vomiting then will need NG tube
does have some stool output in ostomy
Continue with gentle hydration
Continue pantoprazole, zofran prn
# Crohn's disease, on Skyrizi-; s/p colectomy with colostomy
Missed Skyrizi infusion today.
GI following
# BPH with LUTS-
History of chronic urinary retention.
Patient's straight caths x 3 a day.
Start the patient on bladder scan protocol,
BPH medications-alfuzosin, finasteride, tadalafil on hold.
CT abdomen and pelvis today showed some evidence for incomplete bilateral ureteropelvic junction obstruction likely 2/2 BPH
Monitor I's and O's
# CKD stage IIIa-
Stable.
# Essential hypertension-
On amlodipine and metoprolol at home.
Oral meds held, patient NPO.
Added Lopressor as needed.
# CHAD-
Continue home CPAP.
# DVT prophylaxis-
Sequential compression devices,lovenox
CODE STATUS
Full code.
Anticipated Discharge: 24 - 48 hours
Subjective/Interval History
-
Date of Service: September 04, 2025
nauseous this morning
Objective Data
-
Labs:
Laboratory Results
09/04/25 09/04/25
05:23 07:52
WBC 6.6 Cancelled
Hgb 14.4 Cancelled
Hct 44.3 Cancelled
Plt Count 207 Cancelled
Sodium 143 Cancelled
Potassium 3.7 Cancelled
Chloride 108 H Cancelled
Carbon Dioxide 27 Cancelled
BUN 28 H Cancelled
Creatinine 1.2 Cancelled
Glucose 127 H Cancelled
Calcium 9.7 Cancelled
Total Bilirubin 2.0 H Cancelled
AST 30 Cancelled
ALT 25 Cancelled
Alkaline Phosphatase 65 Cancelled
Vital Signs:
Vital Signs
Temp Pulse Resp BP Pulse Ox
98.6 F 86 18 122/77 91
09/04/25 07:35 09/04/25 07:35 09/04/25 07:35 09/04/25 07:35 09/04/25 07:35
I&O
09/03/25 09/04/25 09/05/25
06:59 06:59 06:59
Output Total 450 / 450
Balance -450 / -450
[2025-09-04 10:13] VITALS: BP 127/79; PULSE 78; O2SAT 93
--- NOTE | 2025-09-04 11:19 | W.PN.GI.CBS2 ---
Today's Communication / Plan
-
IV steroids
Assessment / Plan
-
Pt is a 75yo presents with history of crohns diseases, BPH, sleep apnea, esophagitis , pancreatic cyst, prominent periportal lymph nodes, B12 deficiency, gastritis, shingles, thoracic aneurysmal dilation, PNA, prior covid ,basal cell Ca, CKD and
recent inguinal hernia with urinary issues and chronic st cath and longstanding crohn's disease since 1972 initially UC then later crohns. He had total colectomy at [facility] with ileostomy then stoma revision with ulceration in 1985. In 2005 he
had surgical procedure with Dr. Whitfield with hernia repair, SB resection and revision on ileostomy. He has been treated with multiple medications through then years with sulfasalazine, 6 MP, Remicade with and development of lupus. He was on
Stelara until November but had covid, hernia repair with urinary issues and was off medication for about 6 months. On resuming medication in April he started Skyrizi with recent third dose. He now presents with mild abdominal pain, bloating,
vomiting larger volume on 09/03 prior to admission, decreased ostomy output since 09/02. Ct on admission with concern for dilated SB with air fluid level in RLQ at level of right inguinal canal concern for distal SBO on basis on adhesions. no free
air. In review with patient he has not had need for steroid for crohns, hospitalization and has been well controlled. He denies wt loss, dysphagia, GERD, constipation or bleeding. Pt denies visual problems, rashes or joint pains with IBD. Last
visit Dr. Contreras at [facility] 03/2025 due follow up MRI and MR enterography due to be done today. 12/2021- ileoscopy pseudopolyps in area at 5 cm proximal to stoma
-concern for distal SB obstruction-
-hx long standing crohns with multiple surgical intervention and medication as above current Skyrizi started on April off medication November
-hx multiple panc cyst with follow at [facility]
-leukocytosis
-recent inguinal hernia repair 2024
other med problems:
BPH, sleep apnea, esophagitis , pancreatic cyst, prominent periportal lymph nodes, B12 deficiency, gastritis, shingles, thoracic aneurysmal dilation, PNA, prior covid ,basal cell Ca, CKD and recent inguinal hernia with urinary issues and chronic
st cath
CRP elevated at 19.6
PLAN:
would treat as flare with iv steroids to try to d/c any inflammatory process adding to the narrowing of the small bowel.
cont NPO, IVF
NGT if further vomiting
surgical eval
follow up with Dr. Neal and continue OP Payal -- missed infusion
Subjective
Subjective
Date of Service: September 04, 2025
Pt with nausea, vomiting x1
ostomy does have some output
Objective
Data Reviewed
Laboratory Data:
Laboratory Results
09/04/25 07:52
09/04/25 07:52
Laboratory Results
Total Bilirubin Cancelled 09/04/25 07:52
AST Cancelled 09/04/25 07:52
ALT Cancelled 09/04/25 07:52
Alkaline Phosphatase Cancelled 09/04/25 07:52
Vital Signs and I&O:
Vital Signs
Temp Pulse Resp BP Pulse Ox
98.6 F 86 18 122/77 91
09/04/25 07:35 09/04/25 07:35 09/04/25 07:35 09/04/25 07:35 09/04/25 07:35
I&O
09/03/25 09/04/25 09/05/25
06:59 06:59 06:59
Output Total 450 / 450
Balance -450 / -450
Physical Exam
Physical Exam
GI: Soft, Distended (mildly distended) and Other (ostomy with brown output)
Neuro: Non Focal
[2025-09-04] MEDS: SOLU-MEDROL PF 20 MG IV ×2 (12:42→19:56)
--- NOTE | 2025-09-04 12:56 | CM ---
CM following re: discharge planning.
Reviewed pt's chart, met with pt.
Per chart review, pt remains NPO due to vomition, may need NGT, gastroenterology following.
PT and OT evaluations noted - pt has no skilled PT/OT needs.
Pt lives with spouse in a split level home 4 [address] and 4 steps to bathroom and pt is independent in all areas [employer].
D/C plan: home with anticipated no needs. Spouse to transport at discharge.
CM will follow with discharge plan updates as hospitalization progresses
--- NOTE | 2025-09-04 13:34 | W.PN.GS2 ---
Today's Communication / Plan
-
`
Assessment / Plan
-
Assessment: 75 y/o male with clinically resolving pSBO likely secondary to adhesions
+significant ostomy outputs
Plan: okay for sips of clears and ice chips
probable diet advacement tomorrow if continued GI function and clinically resolving
Subjective Data
-
Date of Service: September 04, 2025
pt seen and examined
at bedside
started with ileostomy output overnight and much more recently
nausea subsiding
pain improved
Objective Data
-
Intake and Output
09/03/25 09/04/25 09/05/25
06:59 06:59 06:59
Output Total 450 / 450 1650 / 1650
Balance -450 / -450 -1650 / -1650
Output:
Liquid stool amount 175 / 175 1450 / 1450
Ileostomy 175 / 175 1450 / 1450
Urine, Voided 200 / 200
Straight cath output 275 / 275
Vital Signs
Temp Pulse Resp BP Pulse Ox
98.6 F 86 18 122/77 91
09/04/25 07:35 09/04/25 07:35 09/04/25 07:35 09/04/25 07:35 09/04/25 07:35
Lab Results
09/04/25 07:52
09/04/25 07:52
Calcium Cancelled 09/04/25 07:52
Total Bilirubin Cancelled 09/04/25 07:52
AST Cancelled 09/04/25 07:52
ALT Cancelled 09/04/25 07:52
Alkaline Phosphatase Cancelled 09/04/25 07:52
Total Protein Cancelled 09/04/25 07:52
Albumin Cancelled 09/04/25 07:52
Physical Exam
-
NAD AAOx3
ABD: soft, ND, minimal TTP
ileostomy with liquid succus
[2025-09-04 15:10] VITALS: BP 132/71
[2025-09-04] MEDS: LOVENOX 40 MG SC (17:02)
[2025-09-04 23:00] VITALS: BP 112/64
[2025-09-05] MEDS: SOLU-MEDROL PF 20 MG IV ×3 (03:05→20:34)
[2025-09-05] MEDS: LR 1000 IV (05:08)
--- NOTE | 2025-09-05 07:24 | W.PN.GS2 ---
Today's Communication / Plan
-
-- Clears, OK to ADAT to LRD
-- Would hold on resume Loperamide until at least tomorrow if not Monday pending ileostomy outputs
-- Dispo pending today versus tomorrow
Assessment / Plan
-
Assessment: 75 y/o male with clinically resolving pSBO likely secondary to adhesions and dietary indiscretion
AVSS
Labs pending
Clinical improvement, +significant ostomy outputs. Started on clears OK to ADAT to LRD by this afternoon. Mr. Adan typically takes Loperamide twice daily at home to help control his ileostomy outputs. We discussed slowly resuming this
medication at first daily and then twice daily based on his ileostomy outputs over the next 24 to 48 hours. Dispo pending dietary tolerance and patient preference today versus tomorrow.
Plan:
-- Clears, OK to ADAT to LRD
-- Would hold on resume Loperamide until at least tomorrow if not Monday pending ileostomy outputs
-- Dispo pending today versus tomorrow
Subjective Data
-
Date of Service: September 05, 2025
No complaints. Pain well-controlled, abdomen back to baseline. No nausea or vomiting. Liquid ostomy output. Afebrile. Of note, episode occurred after eating popcorn.
Objective Data
-
Intake and Output
09/04/25 09/05/25 09/06/25
06:59 06:59 06:59
Intake Total 1440 / 1440
Output Total 450 / 450 3100 / 3100
Balance -450 / -450 -1660 / -1660
Intake:
Oral fluids 480 / 480
IV fluids (Total) 960 / 960
Output:
Liquid stool amount 175 / 175 2550 / 2550
Ileostomy 175 / 175 2550 / 2550
Urine, Voided 550 / 550
Straight cath output 275 / 275
Vital Signs
Temp Pulse Resp BP Pulse Ox
98.3 F 67 17 112/64 93
09/04/25 23:00 09/04/25 23:00 09/04/25 23:00 09/04/25 23:00 09/04/25 23:00
Calcium Cancelled 09/04/25 07:52
Total Bilirubin Cancelled 09/04/25 07:52
AST Cancelled 09/04/25 07:52
ALT Cancelled 09/04/25 07:52
Alkaline Phosphatase Cancelled 09/04/25 07:52
Total Protein Cancelled 09/04/25 07:52
Albumin Cancelled 09/04/25 07:52
Physical Exam
-
Gen: NAD
Abd: soft, NT, ND, non-peritoneal, multiple prior incisions well healed, ostomy PPV - liquid bilious output
Patient has a lawrence catheter: No
Patient has a central line: No
[2025-09-05 07:35] VITALS: BP 142/84
[2025-09-05 07:38] LABS: Hematocrit 42.2 % (39.0-52.0); Hemoglobin 13.7 g/dL (13.0-18.0); Mean Corp Hgb Conc. 32.5 g/dL (33.0-37.0); Mean Corpuscular Volume 98.4 fL (80.0-94.0); Nucleated Red Blood Cells % 0 % (-); Platelet Count 192 10^3/uL (130-400); Red Cell Dist. Width 13.2 % (11.5-14.5)
[2025-09-05 08:08] LABS: ALT (SGPT) 27 U/L (0-50); AST (SGOT) 28 U/L (17-59); Albumin 4.0 g/dl (3.5-5.0); Alkaline Phosphatase 72 U/L (38-126); Blood Urea Nitrogen 30 mg/dl (9-20); Calcium 9.4 mg/dl (8.4-10.2); Carbon Dioxide 28 mmol/L (22-30); Chloride 109 mmol/L (98-107); Estimated Creatinine Clearance 56 ml/min; Glucose 125 mg/dl (70-99); Potassium 4.1 mmol/L (3.5-5.1); Sodium 145 mmol/L (135-145); Total Protein 6.7 g/dl (6.3-8.2); eGFR > 60.00
[2025-09-05] MEDS: PROTONIX IV 40 MG IV (08:26)
[2025-09-05] MEDS: NSS (PRESERVATIVE FREE) 10 ML IV (08:26)
--- NOTE | 2025-09-05 11:56 | W.PN.GI.CBS2 ---
Today's Communication / Plan
-
Advance diet as tolerated
Switch IV steroid to oral steroid on discharge ( tapering dose )
Follow-up with GI at [facility]
Assessment / Plan
-
Pt is a 75yo presents with history of crohns diseases, BPH, sleep apnea, esophagitis , pancreatic cyst, prominent periportal lymph nodes, B12 deficiency, gastritis, shingles, thoracic aneurysmal dilation, PNA, prior covid ,basal cell Ca, CKD and
recent inguinal hernia with urinary issues and chronic st cath and longstanding crohn's disease since 1972 initially UC then later crohns. 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 In 2005 he
had surgical procedure with Dr. Whitfield with hernia repair, SB resection and revision on ileostomy. He has been treated with multiple medications through then years with sulfasalazine, 6 MP, Remicade with and development of lupus. He was on
Stelara until November but had covid, hernia repair with urinary issues and was off medication for about 6 months. On resuming medication in April he started Skyrizi with recent third dose. He now presents with mild abdominal pain, bloating,
vomiting larger volume on 09/03 prior to admission, decreased ostomy output since 09/02. Ct on admission with concern for dilated SB with air fluid level in RLQ at level of right inguinal canal concern for distal SBO on basis on adhesions. no free
air. In review with patient he has not had need for steroid for crohns, hospitalization and has been well controlled. He denies wt loss, dysphagia, GERD, constipation or bleeding. Pt denies visual problems, rashes or joint pains with IBD. Last
visit Dr. Contreras at [facility] 03/2025 due follow up MRI and MR enterography due to be done today. 12/2021- ileoscopy pseudopolyps in area at 5 cm proximal to stoma
-concern for distal SB obstruction-
-hx long standing crohns with multiple surgical intervention and medication as above current Skyrizi started on April off medication November
-hx multiple panc cyst with follow at [place]
-leukocytosis
-recent inguinal hernia repair 2024
other med problems:
BPH, sleep apnea, esophagitis , pancreatic cyst, prominent periportal lymph nodes, B12 deficiency, gastritis, shingles, thoracic aneurysmal dilation, PNA, prior covid ,basal cell Ca, CKD and recent inguinal hernia with urinary issues and chronic
st cath
CRP elevated at 19.6
PLAN:
clinical improvement
Tolerating clear liquid diet. Okay to advance diet as tolerated
IV steroids were started yesterday . If patient to be discharged okay to discharge on prednisone 40 mg with 10 mg weekly taper.
follow up surgical recommendation on loperamide
follow up with [facility] - Dr. Neal and continue Stevens -- missed infusion . patient will call his GI after discharge to arrange follow up
No further GI recommendation at this point. will s/o. Please call us back if any question
Total Time Spent with Patient (in minutes): 35
Subjective
Subjective
Date of Service: September 05, 2025
Feeling better. Denies any abdominal pain/nausea/vomiting. Ileostomy with output now. tolerating clear liquid diet this a.m.
Objective
Data Reviewed
Laboratory Data:
Laboratory Results
09/05/25 06:12
09/05/25 06:12
Laboratory Results
Total Bilirubin 1.2 mg/dl (0.2-1.3) 09/05/25 06:12
AST 28 U/L (17-59) 09/05/25 06:12
ALT 27 U/L (0-50) 09/05/25 06:12
Alkaline Phosphatase 72 U/L (38-126) 09/05/25 06:12
Vital Signs and I&O:
Vital Signs
Temp Pulse Resp BP Pulse Ox
97.6 F 70 18 142/84 97
09/05/25 07:35 09/05/25 07:35 09/05/25 07:35 09/05/25 07:35 09/05/25 07:35
I&O
09/04/25 09/05/25 09/06/25
06:59 06:59 06:59
Intake Total 1440 / 1440
Output Total 450 / 450 3100 / 3100
Balance -450 / -450 -1660 / -1660
Physical Exam
Physical Exam
GI: Soft, Non Distended, Non Tender and Other (Ileostomy with liquid stool ++)
--- NOTE | 2025-09-05 12:25 | W.PN.HOSP.TC ---
Today's Communication/Plan
-
if improving and tolerating diet well - might be for d/c in AM, hold Loperamide pending further evaluation of stoma output
can stop IVF
Assessment / Plan
Assessment / Plan
75yo M with PMHx of Crohns s/p multiple surgeries and colectomy with colostomy, BPHS on TID straight self-cath, CKD, HTN, CHAD came with abdominal pain found SBO
A/P:
#SBO
output seen in stoma
advancing diet as per GEnSx
Watchfor high stoma output
#Crohns
on Skyrisi as outpatient
now on steroids as per GI: discharge on prednisone 40 mg with 10 mg weekly taper
#Bilirubinemia
intermittent, chronic
resolved
#CHAD on CPAP
#Essential HTN
#BPH
cont home meds
cont CPAP
Cont straight cath
DVT ppx lovenox
Full code
I have spent at least 38min reviewing chart, test results, communication with cponsultants and providing direct patient care
Anticipated Discharge: Within 24 hours
Subjective/Interval History
-
Date of Service: September 05, 2025
Objective Data
-
Labs:
Laboratory Results
09/05/25
06:12
WBC 6.3
Hgb 13.7
Hct 42.2
Plt Count 192
Sodium 145
Potassium 4.1
Chloride 109 H
Carbon Dioxide 28
BUN 30 H
Creatinine 1.2
Glucose 125 H
Calcium 9.4
Total Bilirubin 1.2
AST 28
ALT 27
Alkaline Phosphatase 72
Vital Signs:
Vital Signs
Temp Pulse Resp BP Pulse Ox
97.6 F 70 18 142/84 97
09/05/25 07:35 09/05/25 07:35 09/05/25 07:35 09/05/25 07:35 09/05/25 07:35
I&O
09/04/25 09/05/25 09/06/25
06:59 06:59 06:59
Intake Total 1440 / 1440
Output Total 450 / 450 3100 / 3100
Balance -450 / -450 -1660 / -1660
Review of Systems
-
History Source: Patient
All other systems: Reviewed and negative
Physical Exam
-
General: No Apparent Distress
HEENT: Normocephalic
Cardiac: Regular Rhythm
GI: Soft, Nontender, Nondistended and Ostomy
Neuro: Awake, Alert, Oriented and AO x 3
Psych: Calm
--- NOTE | 2025-09-05 14:36 | CM ---
CM following re: discharge planning.
Reviewed pt's chart, met with pt.
Per chart review, pt tolerating diet well, gastroenterology following.
PT and OT evaluations noted - pt has no skilled PT/OT needs.
Pt lives with spouse in a split level home [address] and 4 steps to bathroom and pt is independent in all areas [facility].
D/C plan: home with anticipated no needs. Spouse to transport at discharge.
CM will follow with discharge plan updates as needed.
[2025-09-05 16:21] VITALS: BP 133/78
[2025-09-05] MEDS: LOVENOX 40 MG SC (18:29)
[2025-09-05 22:55] VITALS: BP 161/90
[2025-09-06] MEDS: SOLU-MEDROL PF 20 MG IV (03:38)
[2025-09-06 07:00] VITALS: BP 142/84
[2025-09-06] MEDS: PROTONIX IV 40 MG IV (08:04)
[2025-09-06] MEDS: NSS (PRESERVATIVE FREE) 10 ML IV (08:04)
[2025-09-06] MEDS: FLUSH (NSS) 2 FLUSH IV (08:05)
--- NOTE | 2025-09-06 09:57 | W.PN.HOSP.TC ---
Today's Communication/Plan
-
DC
Assessment / Plan
Assessment / Plan
75yo M with PMHx of Crohns s/p multiple surgeries and colectomy with colostomy, BPHS on TID straight self-cath, CKD, HTN, CHAD came with abdominal pain found SBO, resolved conservatively. GI continued on steroids. Tolerated food with appropriate
stoma output. Medcially stable to be d/.c home on steroid titration starting with Prednisone 40mg daily and decreasing by 10mg weekly as per GI.
A/P:
#SBO
output seen in stoma
advancing diet as per GEnSx
Watchfor high stoma output
#Crohns
on Skyrisi as outpatient
now on steroids as per GI: discharge on prednisone 40 mg with 10 mg weekly taper
#Bilirubinemia
intermittent, chronic
resolved
#CHAD on CPAP
#Essential HTN
#BPH
cont home meds
cont CPAP
Cont straight cath
DVT ppx lovenox
Full code
I have spent at least 38min reviewing chart, test results, communication with cponsultants and providing direct patient care
Anticipated Discharge: Today
Subjective/Interval History
-
Date of Service: September 06, 2025
Objective Data
-
Vital Signs:
Vital Signs
Temp Pulse Resp BP Pulse Ox
98.1 F 67 16 142/84 95
09/06/25 07:00 09/06/25 07:00 09/06/25 07:00 09/06/25 07:00 09/06/25 07:00
I&O
09/05/25 09/06/25 09/07/25
06:59 06:59 06:59
Intake Total 1440 / 1440 780 / 780
Output Total 3100 / 3100 2800 / 2800 575 / 575
Balance -1660 / -1660 -2019 - / -575
Review of Systems
-
History Source: Patient
All other systems: Reviewed and negative
Physical Exam
-
General: No Apparent Distress
Neuro: Awake, Alert, Oriented and AO x 3
Psych: Calm
--- NOTE | 2025-09-06 10:21 | W.DCSUMMARY ---
Discharge Summary
Discharge Data
Date of Admission: 09/03/25
Date of Discharge: 09/06/25
-
Pending Results: No
Hospital Course
75yo M with PMHx of Crohns s/p multiple surgeries and colectomy with colostomy, BPHS on TID straight self-cath, CKD, HTN, CHAD came with abdominal pain found SBO, resolved conservatively. GI continued on steroids. Tolerated food with appropriate
stoma output. Medcially stable to be d/.c home on steroid titration starting with Prednisone 40mg daily and decreasing by 10mg weekly as per GI.
I have spent at least 38min reviewing chart, test results, communication with cponsultants and providing direct patient care
Patietn was managed for:
#SBO
#Crohns
#PAncretic cyst
#Thoracic aneurism
#Basal cell CA of the skin
#Bilirubinemia
#CHAD on CPAP
#Essential HTN
#BPH
Discharge Plan
-
Patient Disposition: Home (Routine Discharge)
Discharge Diagnosis/Procedures: SPO
Diet: Low Residue
Activity: As tolerated
Referrals:
Queenie Cam MD [Family Provider, Internal Medicine]
Prescriptions:
New
prednisone 20 mg tablet
See Taper PO DAILY Qty: 36 0RF
Taper: Prednisone DC Starting at 40 mg daily
40 mg Daily for 7 Days and 0 Hour
30 mg Daily for 7 Days and 0 Hour
20 mg Daily for 7 Days and 0 Hour
10 mg Daily for 7 Days and 0 Hour
Continued
metoprolol succinate [Toprol XL] 50 mg Tablet Extended Release 24 Hr
50 mg PO HS
therapeutic multivitamin Tablet
1 tab PO HS
tadalafil [Cialis] 5 mg Tablet
5 mg PO QPM
PreserVision AREDS 2,148 mcg-113 mg-45 mg-17.4mg Tablet
1 tab PO BID
cranberry 450 mg Tablet
450 mg PO HS
amlodipine 5 mg tablet
5 mg PO HS
methenamine hippurate 1 gram tablet
1,000 g PO BID
cyanocobalamin (vitamin B-12) 1,000 mcg/mL solution
1,000 mcg IM MONTHLY
omeprazole 20 mg capsule,delayed release(DR/EC)
20 mg PO DAILY
finasteride 5 mg tablet
5 mg PO HS
alfuzosin 10 mg tablet extended release 24 hr
10 mg PO HS
Skyrizi 60 mg/mL Solution
600 mg IV . DIRECTED
famotidine [Pepcid] 20 mg tablet
20 mg PO BID
Held
loperamide 2 mg Tablet
2 mg PO BID
Hold Instructions: Resume on 09/07/25.
Discontinued
doxycycline hyclate 100 mg capsule
100 mg PO BID
Discharge Orders:
Discharge Patient (As Directed); Ordered 09/06/25
Ordered By: Paolo Prince
Discharge Date and Time
Print Language: CENTRAL AFRICAN
--- NOTE | 2025-09-06 11:32 | CM ---
SW issued IMM to pt and at bedside.
No needs identified and to provide transport home.
[2025-09-06 11:33] VITALS: BP 155/94
== END 2025-09-06 11:36 | disposition home or self-care (01) | DRG 389 ==
LOC: 2 SOUTH 12:49
PROVIDERS: ADMITTING PHYSICIAN Internal Medicine; ATTENDING PHYSICIAN Internal Medicine; CONSULT PHYSICIAN Internal Medicine; CONSULT PHYSICIAN Surgery; EMERGENCY PHYSICIAN Emergency Medicine; FAMILY PHYSICIAN Emergency Medicine
DX: K56.51 Intestinal adhesions [bands], with partial obstruction (principal); K86.2 Cyst of pancreas; C44.91 Basal cell carcinoma of skin, unspecified; N18.31 Chronic kidney disease, stage 3a; I12.9 Hypertensive chronic kidney disease with stage 1 through stage 4 chronic kidney disease, or unspecified chronic kidney disease; G47.33 Obstructive sleep apnea (adult) (pediatric); Z96.652 Presence of left artificial knee joint; Z87.891 Personal history of nicotine dependence; Z93.3 Colostomy status; Z88.0 Allergy status to penicillin; Z88.2 Allergy status to sulfonamides; Z87.440 Personal history of urinary (tract) infections; E53.8 Deficiency of other specified B group vitamins; K80.20 Calculus of gallbladder without cholecystitis without obstruction; N28.1 Cyst of kidney, acquired; N40.1 Benign prostatic hyperplasia with lower urinary tract symptoms; Z85.828 Personal history of other malignant neoplasm of skin; Z86.16 Personal history of COVID-19
CPT/HCPCS: 74177; 80053; 82962; 85025; 85652; 86140; 93005; 96374; 97161; 97165; 99285; Q9967

== ENCOUNTER → 2025-09-08 07:22 | Outpatient (REF) | payer MEDICARE, OTHER, SELFPAY | LOC: HWRAD 07:22 | DX: R05.1 Acute cough (principal) | CPT/HCPCS: 71046 ==